=== PATIENT | female | born 1950 | race Caucasian/White ===

== ENCOUNTER 2021-03-24 12:15 | Inpatient (IN) | payer MEDICARE, OTHER ==
[~2021-03-24] VITALS: Ht 172.7 cm; Wt 108.9 kg
[2021-03-24] MEDS ORDERED: DILTIAZEM HCL 5 MG/ML 5 ML VIAL IV STA ×2 (12:19→13:25)
[2021-03-24 12:51] LABS: BASOPHILS # (AUTO) 0.1 (0.0-0.1); BASOPHILS % 0.5 % (0.0-1.0); EOSINOPHILS # (AUTO) 0.2 (0.0-0.4); EOSINOPHILS % 2.1 % (0.0-6.0); HEMATOCRIT 47.4 % (34.2-44.1); HEMOGLOBIN 15.9 g/dL (12.0-16.0); LYMPHOCYTES # (AUTO) 2.5 (1.0-3.2); LYMPHOCYTES % 21.2 % (18.0-39.1); MEAN CORPUSCULAR HEMOGLOBIN 30.6 pg (28-32); MEAN CORPUSCULAR HGB CONC 33.5 g/dL (31-35); MEAN CORPUSCULAR VOLUME 91.2 fL (81-99); MONOCYTES # (AUTO) 0.5 (0.2-0.8); MONOCYTES % 4.5 % (4.4-11.3); NEUTROPHILS # (AUTO) 8.3 (2.1-6.9); NEUTROPHILS % 71.5 % (38.7-80.0); PLATELET COUNT 226 x10e3/uL (140-360); RED CELL DISTRIBUTION WIDTH 12.2 % (11.7-14.4)
[2021-03-24 13:02] LABS: INR 1.01
[2021-03-24 13:03] LABS: PARTIAL THROMBOPLASTIN TIME 28.7 seconds (23.8-35.5)
[2021-03-24 13:12] LABS: ALBUMIN/GLOBULIN RATIO 0.8 (0.8-2.0); ANION GAP 19.6 mmol/L (8-16); CREATININE, SERUM 0.92 mg/dL (0.57-1.11); POTASSIUM 3.6 mmol/L (3.5-5.1)
[2021-03-24] MEDS ORDERED: APIXABAN 5 MG TABLET PO ONE (13:45)
[2021-03-24] MEDS ORDERED: METOPROLOL SUCCINATE 50 MG TAB XL PO ONE (13:45)
[2021-03-24] MEDS ORDERED: ONDANSETRON HCL INJ 2MG/ML 2ML 2 MG/ML VIAL IV PRN (14:00)
[2021-03-24] MEDS ORDERED: ASPIRIN 81 MG CHEW TAB PO ONE (14:15)
[2021-03-24] MEDS: ONDANSETRON HCL INJ 2MG/ML 2ML 2 MG/ML VIAL IV PRN (14:21)
[2021-03-24] MEDS: Morphine 4mg Syringe 4 MG/ML INJ IV PRN ×2 (14:55→22:18)
[2021-03-24] MEDS ORDERED: DEXTROSE 50% SYRINGE 50 ML IV PRN (15:30)
[2021-03-24] MEDS: DRONEDARONE 400 MG TAB PO SCH (16:47)
[2021-03-24] MEDS ORDERED: METOPROLOL TARTRATE 50 MG TAB PO SCH (17:00)
[2021-03-24 17:28] LABS: CREATINE KINASE MB 2.4 ng/mL (0-5.0)
[2021-03-24] MEDS: INSULIN LISPRO 100 UNIT/1 ML 3ML VIAL SQ SCH ×2 (18:11→21:45)
[2021-03-24] MEDS ORDERED: DIGOXIN 0.125 MG TAB PO ONE (18:15)
[2021-03-24] MEDS ORDERED: DIGOXIN INJ 0.25 MG/ML 2 ML AMP IV ONE ×2 (18:15→20:00)
[2021-03-24] MEDS ORDERED: METOPROLOL TARTRATE 50 MG TAB PO ONE (20:00)
[2021-03-24 21:00] VITALS: BP 113/67
[2021-03-24 21:35] VITALS: BP 113/67
[2021-03-24] MEDS: APIXABAN 5 MG TABLET PO SCH (21:50)
[2021-03-24 22:14] VITALS: BP 113/67
[2021-03-25] VITALS (9 sets, daily range): BP systolic 91–120; BP diastolic 56–75
[2021-03-25] MEDS: METOPROLOL TARTRATE 50 MG TAB PO SCH ×3 (01:00→21:14)
[2021-03-25] MEDS ORDERED: ATORVASTATIN CA20 MG PO (03:06)
[2021-03-25] MEDS ORDERED: LOSARTAN POTASS25 MG PO (03:06)
[2021-03-25] MEDS ORDERED: NEURONTIN300 MG PO (03:06)
[2021-03-25] MEDS ORDERED: AMLODIPINE BESY10 MG PO (03:06)
[2021-03-25] MEDS ORDERED: METFORMIN HCL500 MG PO (03:06)
[2021-03-25 03:57] LABS: CREATINE KINASE MB 3.1 ng/mL (0-5.0)
[2021-03-25] MEDS: Morphine 4mg Syringe 4 MG/ML INJ IV PRN ×2 (05:46→18:10)
[2021-03-25 07:04] LABS: BASOPHILS # (AUTO) 0.1 (0.0-0.1); BASOPHILS % 0.6 % (0.0-1.0); EOSINOPHILS # (AUTO) 0.7 (0.0-0.4); EOSINOPHILS % 6.9 % (0.0-6.0); HEMATOCRIT 41.2 % (34.2-44.1); HEMOGLOBIN 13.8 g/dL (12.0-16.0); LYMPHOCYTES # (AUTO) 3.1 (1.0-3.2); LYMPHOCYTES % 30.2 % (18.0-39.1); MEAN CORPUSCULAR HEMOGLOBIN 30.3 pg (28-32); MEAN CORPUSCULAR HGB CONC 33.5 g/dL (31-35); MEAN CORPUSCULAR VOLUME 90.4 fL (81-99); MONOCYTES # (AUTO) 0.5 (0.2-0.8); MONOCYTES % 5.1 % (4.4-11.3); NEUTROPHILS # (AUTO) 5.9 (2.1-6.9); NEUTROPHILS % 56.8 % (38.7-80.0); PLATELET COUNT 224 x10e3/uL (140-360); RED BLOOD COUNT 4.56 x10e6/uL (3.6-5.1)
[2021-03-25 07:17] LABS: INR 1.36; PROTHROMBIN TIME 17.7 seconds (11.9-14.5)
[2021-03-25 07:22] LABS: ALBUMIN 3.5 g/dL (3.5-5.0); ALBUMIN/GLOBULIN RATIO 0.9 (0.8-2.0); ANION GAP 15.9 mmol/L (8-16); CALCIUM 9.5 mg/dL (8.4-10.2); CHOL/HDL RATIO 3.3 (3.0-3.6); CREATININE, SERUM 0.86 mg/dL (0.57-1.11); POTASSIUM 3.9 mmol/L (3.5-5.1)
[2021-03-25 07:44] LABS: THYROID STIMULATING HORMONE 1.285 uIU/mL (0.350-4.940)
[2021-03-25 08:09] LABS: CREATINE KINASE MB 3.2 ng/mL (0-5.0)
[2021-03-25] MEDS: GABAPENTIN 300 MG CAP PO SCH ×3 (08:12→21:14)
[2021-03-25] MEDS: APIXABAN 5 MG TABLET PO SCH ×2 (08:12→21:14)
[2021-03-25] MEDS: DRONEDARONE 400 MG TAB PO SCH ×2 (08:12→17:00)
[2021-03-25] MEDS: INSULIN LISPRO 100 UNIT/1 ML 3ML VIAL SQ SCH ×4 (08:13→21:00)
[2021-03-25] MEDS ORDERED: DILTIAZEM HCL CR 120MG TAB PO SCH (09:00)
[2021-03-25] MEDS: ONDANSETRON HCL INJ 2MG/ML 2ML 2 MG/ML VIAL IV PRN ×2 (09:15→18:10)
[2021-03-25] MEDS ORDERED: METOPROLOL TARTRATE 50 MG TAB PO SCH (10:30)
[2021-03-25] MEDS ORDERED: SODIUM CHLORIDE 0.9% 250ML 250 ML ONE (16:46)
[2021-03-25] MEDS: ATORVASTATIN 20 MG TAB PO SCH (21:14)
[2021-03-26] VITALS (8 sets, daily range): BP systolic 96–122; BP diastolic 54–97
[2021-03-26] MEDS: Morphine 4mg Syringe 4 MG/ML INJ IV PRN ×4 (00:55→22:10)
[2021-03-26 06:23] LABS: BASOPHILS % 0.4 % (0.0-1.0); EOSINOPHILS # (AUTO) 0.6 (0.0-0.4); EOSINOPHILS % 5.8 % (0.0-6.0); HEMATOCRIT 42.9 % (34.2-44.1); HEMOGLOBIN 13.5 g/dL (12.0-16.0); LYMPHOCYTES # (AUTO) 3.9 (1.0-3.2); LYMPHOCYTES % 36.8 % (18.0-39.1); MEAN CORPUSCULAR HEMOGLOBIN 30.1 pg (28-32); MEAN CORPUSCULAR HGB CONC 31.5 g/dL (31-35); MEAN CORPUSCULAR VOLUME 95.8 fL (81-99); MONOCYTES # (AUTO) 0.5 (0.2-0.8); NEUTROPHILS # (AUTO) 5.5 (2.1-6.9); NEUTROPHILS % 51.8 % (38.7-80.0); PLATELET COUNT 208 x10e3/uL (140-360); RED BLOOD COUNT 4.48 x10e6/uL (3.6-5.1); RED CELL DISTRIBUTION WIDTH 12.2 % (11.7-14.4)
[2021-03-26 07:06] LABS: ALBUMIN 3.6 g/dL (3.5-5.0); ALBUMIN/GLOBULIN RATIO 0.9 (0.8-2.0); ANION GAP 18.2 mmol/L (8-16); CALCIUM 9.1 mg/dL (8.4-10.2); CREATININE, SERUM 0.89 mg/dL (0.57-1.11); MAGNESIUM 1.3 MG/DL (1.3-2.1); PHOSPHORUS 3.4 MG/DL (2.3-4.7); POTASSIUM 4.2 mmol/L (3.5-5.1)
[2021-03-26] MEDS: INSULIN LISPRO 100 UNIT/1 ML 3ML VIAL SQ SCH ×4 (08:27→21:15)
[2021-03-26] MEDS: METOPROLOL TARTRATE 50 MG TAB PO SCH ×2 (08:29→21:00)
[2021-03-26] MEDS: DRONEDARONE 400 MG TAB PO SCH ×2 (08:30→16:07)
[2021-03-26] MEDS: APIXABAN 5 MG TABLET PO SCH (08:30)
[2021-03-26] MEDS: GABAPENTIN 300 MG CAP PO SCH ×3 (08:30→22:00)
[2021-03-26] MEDS ORDERED: DILTIAZEM HCL ER 120 MG CAP PO SCH (09:00)
[2021-03-26] MEDS: ONDANSETRON HCL INJ 2MG/ML 2ML 2 MG/ML VIAL IV PRN ×3 (10:20→22:10)
[2021-03-26] MEDS ORDERED: SODIUM CHLORIDE 0.9% 250ML 250 ML IV ONE (18:30)
[2021-03-26] MEDS: ATORVASTATIN 20 MG TAB PO SCH (22:00)
[2021-03-27] VITALS (7 sets, daily range): BP systolic 95–122; BP diastolic 62–86
[2021-03-27] MEDS: Morphine 4mg Syringe 4 MG/ML INJ IV PRN ×5 (02:19→21:25)
[2021-03-27 05:35] LABS: BASOPHILS % 0.3 % (0.0-1.0); EOSINOPHILS # (AUTO) 0.5 (0.0-0.4); EOSINOPHILS % 5.5 % (0.0-6.0); HEMATOCRIT 39.2 % (34.2-44.1); HEMOGLOBIN 12.6 g/dL (12.0-16.0); LYMPHOCYTES # (AUTO) 3.6 (1.0-3.2); LYMPHOCYTES % 39.6 % (18.0-39.1); MEAN CORPUSCULAR HEMOGLOBIN 30.1 pg (28-32); MEAN CORPUSCULAR HGB CONC 32.1 g/dL (31-35); MEAN CORPUSCULAR VOLUME 93.8 fL (81-99); MONOCYTES # (AUTO) 0.5 (0.2-0.8); MONOCYTES % 5.3 % (4.4-11.3); NEUTROPHILS # (AUTO) 4.4 (2.1-6.9); NEUTROPHILS % 49.1 % (38.7-80.0); PLATELET COUNT 205 x10e3/uL (140-360); RED BLOOD COUNT 4.18 x10e6/uL (3.6-5.1); RED CELL DISTRIBUTION WIDTH 12.2 % (11.7-14.4)
[2021-03-27 05:57] LABS: ALBUMIN 3.3 g/dL (3.5-5.0); ALBUMIN/GLOBULIN RATIO 0.9 (0.8-2.0); ANION GAP 11.6 mmol/L (8-16); CALCIUM 8.7 mg/dL (8.4-10.2); CREATININE, SERUM 0.8 mg/dL (0.57-1.11); POTASSIUM 3.6 mmol/L (3.5-5.1)
[2021-03-27] MEDS: METOPROLOL TARTRATE 50 MG TAB PO SCH ×2 (08:11→21:24)
[2021-03-27] MEDS: DRONEDARONE 400 MG TAB PO SCH ×2 (08:12→16:14)
[2021-03-27] MEDS: GABAPENTIN 300 MG CAP PO SCH ×3 (08:12→21:24)
[2021-03-27] MEDS: INSULIN LISPRO 100 UNIT/1 ML 3ML VIAL SQ SCH ×4 (08:47→21:00)
[2021-03-27] MEDS: MAGNESIUM SULFATE 2GM/50ML 50 ML IV SCH ×2 (16:14→18:20)
[2021-03-27] MEDS ORDERED: SODIUM CHLORIDE 0.9% 250ML 250 ML ONE (16:20)
[2021-03-27] MEDS: DOCUSATE SODIUM LIQD 100 MG/10 ML UDC NG SCH (21:23)
[2021-03-27] MEDS: ATORVASTATIN 20 MG TAB PO SCH (21:24)
[2021-03-28 00:39] VITALS: BP 107/75
[2021-03-28] MEDS: Morphine 4mg Syringe 4 MG/ML INJ IV PRN ×4 (01:45→16:05)
[2021-03-28 05:31] LABS: ANION GAP 15.3 mmol/L (8-16); CALCIUM 8.1 mg/dL (8.4-10.2); CREATININE, SERUM 0.81 mg/dL (0.57-1.11); POTASSIUM 4.3 mmol/L (3.5-5.1)
[2021-03-28 06:43] VITALS: BP 101/70
[2021-03-28 07:48] VITALS: BP 106/61
[2021-03-28 07:55] VITALS: BP 106/61
[2021-03-28] MEDS: DOCUSATE SODIUM LIQD 100 MG/10 ML UDC NG SCH ×2 (08:20→16:13)
[2021-03-28] MEDS: POLYETHYLENE GLYCOL 3350 17 GM PACK PO SCH ×2 (08:20→16:12)
[2021-03-28] MEDS: INSULIN LISPRO 100 UNIT/1 ML 3ML VIAL SQ SCH ×3 (08:20→16:13)
[2021-03-28] MEDS: DRONEDARONE 400 MG TAB PO SCH ×2 (08:20→16:13)
[2021-03-28] MEDS: METOPROLOL TARTRATE 50 MG TAB PO SCH (08:20)
[2021-03-28] MEDS: GABAPENTIN 300 MG CAP PO SCH ×2 (08:20→16:13)
[2021-03-28] MEDS ORDERED: APIXABAN 5 MG TABLET PO SCH (09:15)
[2021-03-28 11:55] VITALS: BP 112/59
[2021-03-28] MEDS ORDERED: LIPITOR20 MG PO (16:12)
[2021-03-28] MEDS ORDERED: METOPROLOL TART50 MG PO ×2 (16:12)
[2021-03-28] MEDS ORDERED: ELIQUIS5 MG PO (16:12)
[2021-03-28] MEDS ORDERED: MULTAQ 400MG T400 MG PO (16:12)
[2021-03-28 16:13] VITALS: BP 117/63
[2021-03-28] MEDS ORDERED: APIXABAN 5 MG TABLET PO NR (16:30)
== END 2021-03-28 17:16 | disposition home or self-care (01) | DRG 309 ==
LOC: ER 12:30 → ERHOLD 14:14 → MED/SURG2 20:50
PROVIDERS: ADMIT Internal Medicine; ATTEND Internal Medicine
DX: I48.19 Other persistent atrial fibrillation (principal); E44.0 Moderate protein-calorie malnutrition; I25.10 Atherosclerotic heart disease of native coronary artery without angina pectoris; E78.00 Pure hypercholesterolemia, unspecified; E66.9 Obesity, unspecified; E11.65 Type 2 diabetes mellitus with hyperglycemia; R07.81 Pleurodynia; R09.02 Hypoxemia; I11.9 Hypertensive heart disease without heart failure; I49.5 Sick sinus syndrome; H91.91 Unspecified hearing loss, right ear; Z96.21 Cochlear implant status; E11.42 Type 2 diabetes mellitus with diabetic polyneuropathy; E11.69 Type 2 diabetes mellitus with other specified complication; E78.5 Hyperlipidemia, unspecified; Z68.36 Body mass index [BMI] 36.0-36.9, adult; Z79.84 Long term (current) use of oral hypoglycemic drugs; Z91.040 Latex allergy status; I25.2 Old myocardial infarction; Z88.8 Allergy status to other drugs, medicaments and biological substances; Z98.61 Coronary angioplasty status; Z20.822 Contact with and (suspected) exposure to COVID-19
CPT/HCPCS: 36415; 71045; 80048; 80053; 80061; 82550; 82553; 82948; 83036; 83605; 83735; 83880; 84100; 84443; 84484; 85025; 85610; 85730; 93005; 93306; 96372; 99284; J1160; J2270; J2405; J3475; J7050; U0002